=== PATIENT | male | born 1965 | race Caucasian/White ===

== ENCOUNTER 2022-04-05 12:45 | Emergency (ER) | payer OTHER ==
[~2022-04-05] VITALS: Ht 167.6 cm; Wt 81.0 kg
[2022-04-05 12:50] VITALS: BP 140/86
[2022-04-05] MEDS ORDERED: CHLORDIAZEPOXIDE 25MG CAPSULE PO ONE (13:00)
[2022-04-05 14:41] LABS: EOSINOPHILS % 0.2 % (0.0-5.0); HEMATOCRIT. 32.1 % (42.0-52.0); HEMOGLOBIN. 10.6 g/dL (14.0-18.0); LYMPHOCYTES % 35.9 % (20.0-50.0); MEAN CORPUSCULAR HEMOGLOBIN 30.6 pg (28.0-32.0); MEAN CORPUSCULAR VOLUME 92.4 fL (80.0-94.0); MEAN PLATELET VOLUME 9.4 fl (7.4-10.4); MONOCYTES % 11.9 % (2.0-8.0); PLATELET 53 x1000/uL (130-400); RED BLOOD CELL COUNT 3.47 mill/uL (4.7-6.1); RED CELL DISTRIBUTION WIDTH 17.3 % (11.6-14.6)
[2022-04-05 14:44] LABS: CHLORIDE 92 mEq/L (98-107)
[2022-04-05 14:54] LABS: ETHANOL BLOOD 289 mg/dL
[2022-04-05] MEDS ORDERED: CHLO25CA10 MT (15:35)
[2022-04-05] MEDS ORDERED: ONDA4TAB11 PO (15:38)
[2022-04-05] MEDS ORDERED: CHLORDIAZEPOXIDE 25MG CAPSULE PO NR (15:45)
[2022-04-05] MEDS ORDERED: ONDANSETRON 4MG ODT PO NR (15:45)
== END 2022-04-05 15:58 | disposition home or self-care (01) ==
LOC: ER 12:45
DX: F10.239 Alcohol dependence with withdrawal, unspecified (principal); E11.9 Type 2 diabetes mellitus without complications; Y90.8 Blood alcohol level of 240 mg/100 ml or more
CPT/HCPCS: 36415; 80048; 80320; 85025; 99283; G0480